=== PATIENT | male | born 1995 | race Caucasian/White ===

== ENCOUNTER 2017-12-16 02:14 | Emergency (ER) | payer MEDICAID, OTHER ==
[~2017-12-16] VITALS: Ht 172.7 cm; Wt 72.6 kg
[2017-12-16 02:31] VITALS: BP 116/81
--- NOTE | 2017-12-16 05:14 | NUR ---
Patient eloped from facility. ER MD notified.
== END 2017-12-16 05:15 | disposition left against medical advice (07) ==
LOC: ER 02:18
DX: S61.512A Laceration without foreign body of left wrist, initial encounter (principal); W45.8XXA Other foreign body or object entering through skin, initial encounter; Y93.89 Activity, other specified; Y92.89 Other specified places as the place of occurrence of the external cause; Y99.8 Other external cause status
CPT/HCPCS: A4606; A6402; Z7610

== ENCOUNTER 2025-09-02 23:10 | Emergency (ER) | payer SELFPAY ==
[~2025-09-02] VITALS: Ht 172.7 cm; Wt 90.7 kg
[2025-09-03 00:50] LABS: APPEARANCE,URINE CLEAR (CLEAR); BLOOD, URINE TRACE-INTA Ery/uL (NEGATIVE); LEUKOCYTE ESTERASE ,URINE NEGATIVE (NEGATIVE); NITRITE, URINE NEGATIVE (NEGATIVE); UGLUCOSE NEGATIVE (NEGATIVE)
[2025-09-03 00:53] LABS: ADD URINE CULTURE NO; SQUAMOUS EPITHELIAL CELL,UR Rare /HPF (None Seen)
[2025-09-03 01:05] LABS: BARBITURATE, URINE NEGATIVE (NEGATIVE); BENZODIAZEPINE, URINE NEGATIVE (NEGATIVE); CANNABINOID, URINE NEGATIVE (NEGATIVE); COCCAINE, URINE NEGATIVE (NEGATIVE); OPIATE, URINE NEGATIVE (NEGATIVE)
[2025-09-03 01:08] LABS: AMPHETAMINE, URINE POSITIVE (NEGATIVE)
[2025-09-03] MEDS ORDERED: LIDOCAINE /MPF 1% VIAL 5 ML VIAL ONE (02:38)
[2025-09-03] MEDS: CEFTRIAXONE 1 G VIAL IM ONE (02:38)
[2025-09-03] MEDS: AZITHROMYCIN 250 MG TABLET PO ONE (02:38)
[2025-09-03] MEDS ORDERED: CEFTRIAXONE 1 G VIAL ONE (02:38)
[2025-09-03] MEDS ORDERED: AZITHROMYCIN 250 MG TABLET ONE (02:38)
[2025-09-03 04:24] VITALS: BP 132/76; TEMP 98; O2SAT 98
[2025-09-04 15:07] LABS: CHLAMYDIA TRACHOMATIS NAA Negative (Negative); NEISSERIA GONORRHOEAE NAA Positive (Negative)
== END 2025-09-03 04:24 | disposition home or self-care (01) ==
LOC: ER 23:13
DX: R30.0 Dysuria (principal); Z79.899 Other long term (current) drug therapy
CPT/HCPCS: 99285; 74176; 96372; 81001; 80307; 87491; 87591; J0696; J3490